=== PATIENT | male | born 1950 | race Caucasian/White ===

== ENCOUNTER → 2020-02-03 | Outpatient (CLI) | payer MEDICARE, OTHER | END | disposition home or self-care (01) | LOC: STAR 09:27 | PROVIDERS: ATTEND Orthopaedic Surgery | DX: Z01.818 Encounter for other preprocedural examination (principal); Z11.59 Encounter for screening for other viral diseases | CPT/HCPCS: 36415; 87635 ==

== ENCOUNTER 2020-02-08 11:03 | Observation (INO) | payer MEDICARE, OTHER ==
[2020-02-06 15:47] LABS: BASOPHILS # (AUTO) 0.02 x10^3/uL (0-0.1); BASOPHILS % (AUTO) 0 % (0-1); EOSINOPHILS # (AUTO) 0.03 x10^3/uL (0-0.4); EOSINOPHILS % (AUTO) 0 % (1-7); LYMPHOCYTES # (AUTO) 2.06 x10^3/uL (1-3.4); LYMPHOCYTES % (AUTO) 30 % (22-44); MD NO; MEAN CORPUSCULAR HEMOGLOBIN 28.7 pg (27.5-34.5); MEAN CORPUSCULAR HGB CONC 32.7 g/dL (33.2-36.2); MEAN CORPUSCULAR VOLUME 87.7 fL (81-97); MEAN PLATELET VOLUME 9.2 fL (7.4-10.4); MONOCYTES # (AUTO) 0.31 x10^3/uL (0.2-0.8); MONOCYTES % (AUTO) 5 % (2-9); NEUTROPHILS # (AUTO) 4.53 x10^3/uL (1.8-6.8); NEUTROPHILS % (AUTO) 65 % (42-75); PLATELET COUNT 232 x10^3/uL (130-400); RED BLOOD COUNT 5.11 x10^6/uL (4.38-5.82)
[2020-02-06 15:55] LABS: CALCIUM 9.1 mg/dL (8.5-10.1); CHLORIDE 106 mmol/L (98-107)
[2020-02-06 16:01] LABS: ALANINE AMINOTRANSFERASE 23 U/L (12-78); ALBUMIN 3.9 g/dL (3.4-5.0); ALKALINE PHOSPHATASE 44 U/L (45-117); ANION GAP 4 mmol/L (5-15); BILIRUBIN,TOTAL 0.6 mg/dL (0.2-1.0); CREATININE 0.88 mg/dL (0.7-1.3); TOTAL PROTEIN 7.2 g/dL (6.4-8.2)
[2020-02-06 16:03] LABS: INTERNATIONAL NORMALIZED RATIO 1.07 (0.93-1.1)
[~2020-02-08] VITALS: Ht 176.5 cm; Wt 78.5 kg
[2020-02-08] MEDS: DOCUSATE 100 MG CAPSULE PO SCH ×2 (09:00→20:06)
[2020-02-08] MEDS: TEMPLATE NON-FORMULARY MED. (Cyclosporine (Restasis) 1 DROP) EACHEYE SCH ×2 (09:00→19:22)
[~2020-02-08 11:03] MED LIST: ACETAMINOPHEN 650 MG/20.3 ML UDC PO PRN; BISACODYL 10 MG SUPP PR PRN; CYCL1DRO EACHEYE; DIPHENHYDRAMINE 25 MG CAPSULE PO PRN; EPINEPHRINE 1 MG/ML, 1ML ONE; KETOROLAC 60 MG/2 ML ONE; MAGNESIUM HYDROXIDE 8%, 30ML UDC PO PRN; ONDANSETRON 2MG/ML, 2ML IV PRN; ONDANSETRON 4 MG TABLET PO PRN; OXYcodone IR 5MG TABLET PO PRN; RIVA20TA PO; ROPIvacaine/PF 0.5%, 20 ML ONE; ROPIvacaine/PF 0.5%, 30 ML ONE; SENNA/DOCUSATE TABLET PO PRN; SODIUM CHLORIDE 0.9% 50 ML ONE; TRANEXAMIC ACID 100 MG/ML, 10ML ONE; VANCOMYCIN 1,000 MG ONE; ZOLPIDEM 5MG TABLET PO PRN; prostagenix PO
[2020-02-08] MEDS ORDERED: CHLORHEXIDINE 15 ML UDC MM STA (11:33)
[2020-02-08] MEDS ORDERED: ACETAMINOPHEN 500 MG TABLET ONE (11:38)
[2020-02-08] MEDS ORDERED: GABAPENTIN 300 MG CAPSULE ONE (11:38)
[2020-02-08] MEDS ORDERED: CHLORHEXIDINE 15 ML UDC ONE (11:38)
[2020-02-08] MEDS ORDERED: ACETAMINOPHEN 500 MG TABLET PO ONE (11:47)
[2020-02-08] MEDS ORDERED: GABAPENTIN 300 MG CAPSULE PO ONE (11:48)
[2020-02-08] MEDS ORDERED: LACTATED RINGERS 1,000 ML IV ONE (11:48)
[2020-02-08] MEDS ORDERED: SCOPOLAMINE 1MG PATCH TD ONE ×2 (11:49→12:30)
[2020-02-08] MEDS ORDERED: SCOPOLAMINE 1MG PATCH TD STA (11:50)
[2020-02-08] MEDS ORDERED: FENTANYL PF 100 MCG/2ML ONE ×3 (11:58→14:08)
[2020-02-08] MEDS ORDERED: MIDAZOLAM 1 MG/ML, 2ML ONE (11:58)
[2020-02-08] MEDS ORDERED: ROCURONIUM 10MG/ML,5ML ONE (12:02)
[2020-02-08] MEDS ORDERED: PROPOFOL 10 MG/ML, 20ML ONE (12:02)
[2020-02-08] MEDS ORDERED: DEXAMETHASONE 4 MG/ML, 1ML ONE (12:02)
[2020-02-08] MEDS ORDERED: ONDANSETRON 2MG/ML, 2ML ONE (12:02)
[2020-02-08] MEDS ORDERED: GLYCOPYRROLATE 0.2MG/1ML, 5ML ONE (12:02)
[2020-02-08] MEDS ORDERED: CEFAZOLIN 1,000 MG ONE (12:02)
[2020-02-08] MEDS ORDERED: SUCCINYLCHOLINE 20 MG/ML, 10ML ONE (12:02)
[2020-02-08] MEDS ORDERED: NEOSTIGMINE 1 MG/ML, 10ML ONE (12:02)
[2020-02-08] MEDS ORDERED: SUGAMMADEX 200 MG/2 ML IVPush ONE (12:22)
[2020-02-08] MEDS ORDERED: OXYcodone 5 MG/5 ML ORAL.SOL UDC PO PRN (12:30)
[2020-02-08] MEDS ORDERED: HYDROmorphone 1 MG/ML, 1ML INJ IVPush PRN (12:30)
[2020-02-08] MEDS ORDERED: MEPERIDINE/PF 25MG/0.5ML IVPush PRN (12:30)
[2020-02-08] MEDS ORDERED: PROMETHAZINE 25 MG/ML, 1ML IVPush PRN (12:30)
[2020-02-08] MEDS ORDERED: MEPERIDINE/PF 25MG/ML,1ML ONE (13:41)
[2020-02-08] MEDS: FENTANYL PF 100 MCG/2ML IV PRN ×4 (13:45→14:25)
[2020-02-08] MEDS ORDERED: OXYcodone 5 MG/5 ML ORAL.SOL UDC ONE (14:09)
[2020-02-08 15:15] VITALS: BP 125/75
[2020-02-08] MEDS: NS + 20MEQ KCL 1,000 ML IV SCH (17:08)
[2020-02-08] MEDS: ASPIRIN 81 MG TABLET EC PO SCH (18:28)
[2020-02-08] MEDS: CEFAZOLIN PMX 2GM/50ML 50 ML IVPB SCH (20:06)
[2020-02-08] MEDS: HYDROcodone/APAP 5/325 TABLET PO PRN (20:07)
[2020-02-08 20:41] VITALS: BP 105/61
[2020-02-08 23:33] VITALS: BP 101/64
[2020-02-09] MEDS: HYDROcodone/APAP 5/325 TABLET PO PRN ×4 (00:32→14:09)
[2020-02-09] MEDS: NS + 20MEQ KCL 1,000 ML IV SCH (02:35)
[2020-02-09 03:45] VITALS: BP 100/59
[2020-02-09] MEDS: CEFAZOLIN PMX 2GM/50ML 50 ML IVPB SCH (04:31)
[2020-02-09] MEDS: ASPIRIN 81 MG TABLET EC PO SCH (05:30)
[2020-02-09] MEDS ORDERED: DEXAMETHASONE 4 MG/ML, 1ML IVPush SCH (06:00)
[2020-02-09 07:20] VITALS: BP 96/59
[2020-02-09] MEDS: DOCUSATE 100 MG CAPSULE PO SCH (08:48)
[2020-02-09] MEDS: TEMPLATE NON-FORMULARY MED. (Cyclosporine (Restasis) 1 DROP) EACHEYE SCH (09:00)
[2020-02-09 12:41] VITALS: BP 103/64
== END 2020-02-09 14:40 | disposition home or self-care (01) ==
LOC: OUT 11:03 → 4NE 15:40 → OUT 20:49
PROVIDERS: ADMIT Orthopaedic Surgery; ATTEND Orthopaedic Surgery
DX: M16.12 Unilateral primary osteoarthritis, left hip (principal); Z79.899 Other long term (current) drug therapy; Z86.718 Personal history of other venous thrombosis and embolism; Z86.711 Personal history of pulmonary embolism
CPT/HCPCS: 27130; 36415; 72170; 73502; 80053; 83036; 85014; 85018; 85025; 85610; 85730; 87081; 93005; 96361; 96365; 96366; 96375; 97161; 97165; C1713; C1776; G0378; J0171; J0330; J0690; J1100; J1885; J2175; J2250; J2405; J2704; J2710; J2795; J3010; J3370; J3480; J7120